=== PATIENT | female | born 1995 | race Caucasian/White ===

== ENCOUNTER 2024-05-09 13:25 | Emergency (ER) | payer MEDICAID, OTHER ==
[2024-05-09] MEDS ORDERED: Sodium Chloride 0.9% 10 ML Syringe FLUSH PRN (14:11)
[2024-05-09] MEDS ORDERED: Thiamine 100 MG in Sodium Chloride 0.9% 100 ML IV ONE (14:33)
[2024-05-09 14:39] LABS: BASOPHILS PERCENT AUTO 0.2 % (0.0-1.0); HEMATOCRIT 41.3 % (37.0-47.0); HEMOGLOBIN 14.1 gm/dl (12.0-16.0); IMMATURE GRAN ABSOLUTE AUTO 0.03 K/mm3 (0.00-0.05); IMMATURE GRAN PERCENT AUTO 0.3 % (0.0-0.4); LYMPHOCYTES ABSOLUTE AUTO 0.5 K/mm3 (1.0-4.8); LYMPHOCYTES PERCENT AUTO 5.7 % (24.0-44.0); MEAN CORPUSCULAR HEMOGLOBIN 29.3 pg (28.0-32.0); MEAN CORPUSCULAR HGB CONC 34.1 g/dl (32.0-36.0); MEAN CORPUSCULAR VOLUME 85.7 fl (83.0-99.0); MEAN PLATELET VOLUME 9.8 fl (9.4-12.3); MONOCYTES ABSOLUTE AUTO 0.2 K/mm3 (0.0-0.8); MONOCYTES PERCENT AUTO 2.2 % (0.0-8.0); NEUTROPHILS ABSOLUTE AUTO 8.1 K/mm3 (1.8-7.7); NEUTROPHILS PERCENT AUTO 91.6 % (41.0-71.0); PLATELET COUNT,PLT 212 K/mm3 (150-400); RED BLOOD CELL COUNT 4.82 M/mm3 (4.10-5.30)
[2024-05-09] MEDS: Ondansetron 4 MG/2 ML SDV IVPUSH ONE (14:40)
[2024-05-09] MEDS: Thiamine 200 MG/2 ML MDV IVPUSH ONE (14:40)
[2024-05-09] MEDS: Sodium Chloride 0.9% 1,000 ML IV ONE (14:40)
[2024-05-09] MEDS: Vitamin B6-pyridOXINE 50 MG Tab PO ONE (14:40)
[2024-05-09 14:52] LABS: ANION GAP 13.3 (5-15); BUN/CREATININE RATIO 13.3 (14-18); CALCIUM 8.9 mg/dL (8.5-10.1); CREATININE 0.9 mg/dL (0.55-1.02); EST CRCL DRUG DOSING (CG) 81.8 mL/min; POTASSIUM,K 3.3 mEq/L (3.5-5.1)
[2024-05-09 15:50] LABS: APPEARANCE,URINE CLEAR (Clear); BILIRUBIN,URINE NEGATIVE (Negative); COLOR,URINE YELLOW (Yellow); GLUCOSE,URINE NEGATIVE (Negative); KETONES,URINE 4+ (Negative); LEUKOCYTE ESTERASE,URINE NEGATIVE (Negative); NITRITE,URINE NEGATIVE (Negative); OCCULT BLOOD,URINE NEGATIVE (Negative); PH,URINE 7.5 (5.0-8.0); PROTEIN,URINE 1+ (Negative)
[2024-05-09 16:02] LABS: BACTERIA,URINE FEW /hpf (FEW); MUCUS,URINE FEW /hpf (FEW); RBC,URINE 0-5 /hpf (0-5); WBC,URINE 0-5 /hpf (0-5)
[2024-05-09 19:08] VITALS: BP 116/83; PULSE 84
== END 2024-05-09 18:30 | disposition home or self-care (01) ==
LOC: JD.ED 13:25
DX: O20.8 Other hemorrhage in early pregnancy (principal); O21.9 Vomiting of pregnancy, unspecified; O99.891 Other specified diseases and conditions complicating pregnancy; R19.7 Diarrhea, unspecified; Z3A.09 9 weeks gestation of pregnancy; Z90.49 Acquired absence of other specified parts of digestive tract; Z79.899 Other long term (current) drug therapy; Z88.2 Allergy status to sulfonamides
CPT/HCPCS: 36415; 76815; 80048; 81001; 84702; 84703; 85025; 96361; 96374; 96375; 99284; A9270; J2405; J3411; J7030

== ENCOUNTER 2024-07-03 12:24 | Emergency (ER) | payer OTHER ==
[2024-07-03 13:25] LABS: BASOPHILS PERCENT AUTO 0.4 % (0.0-1.0); HEMATOCRIT 36.7 % (37.0-47.0); HEMOGLOBIN 12.7 gm/dl (12.0-16.0); IMMATURE GRAN ABSOLUTE AUTO 0.02 K/mm3 (0.00-0.05); IMMATURE GRAN PERCENT AUTO 0.4 % (0.0-0.4); LYMPHOCYTES ABSOLUTE AUTO 0.4 K/mm3 (1.0-4.8); LYMPHOCYTES PERCENT AUTO 8.7 % (24.0-44.0); MEAN CORPUSCULAR HEMOGLOBIN 29.9 pg (28.0-32.0); MEAN CORPUSCULAR HGB CONC 34.6 g/dl (32.0-36.0); MEAN CORPUSCULAR VOLUME 86.4 fl (83.0-99.0); MONOCYTES ABSOLUTE AUTO 0.2 K/mm3 (0.0-0.8); MONOCYTES PERCENT AUTO 4.8 % (0.0-8.0); NEUTROPHILS PERCENT AUTO 85.7 % (41.0-71.0); PLATELET COUNT,PLT 177 K/mm3 (150-400); RED BLOOD CELL COUNT 4.25 M/mm3 (4.10-5.30); WHITE BLOOD CELL COUNT,WBC 4.61 K/mm3 (3.9-11.3)
[2024-07-03 14:07] LABS: A/G RATIO 0.7 (1-2); ALBUMIN 2.8 g/dl (3.4-5.0); ANION GAP 16.2 (5-15); BILIRUBIN TOTAL 0.2 mg/dL (0.2-1.0); BUN/CREATININE RATIO 5.7 (14-18); CALCIUM 8.5 mg/dL (8.5-10.1); CREATININE 0.7 mg/dL (0.55-1.02); EST CRCL DRUG DOSING (CG) 105.17 mL/min; POTASSIUM,K 3.2 mEq/L (3.5-5.1); PROTEIN TOTAL,TP 6.9 g/dl (6.4-8.2)
[2024-07-03] MEDS: Ondansetron 4 MG/2 ML SDV IVPUSH ONE (14:25)
[2024-07-03] MEDS: Acetaminophen 325 MG Tab PO ONE (14:25)
[2024-07-03] MEDS: Sodium Chloride 0.9% 1,000 ML IV SCH (14:25)
[2024-07-03 20:30] VITALS: BP 100/64; PULSE 98
== END 2024-07-03 15:30 | disposition home or self-care (01) ==
LOC: JD.ED 12:24
DX: O99.512 Diseases of the respiratory system complicating pregnancy, second trimester (principal); J10.1 Influenza due to other identified influenza virus with other respiratory manifestations; O99.282 Endocrine, nutritional and metabolic diseases complicating pregnancy, second trimester; E87.6 Hypokalemia; Z90.49 Acquired absence of other specified parts of digestive tract; Z88.8 Allergy status to other drugs, medicaments and biological substances; Z79.899 Other long term (current) drug therapy; Z3A.17 17 weeks gestation of pregnancy
CPT/HCPCS: 36415; 80053; 85025; 87428; 87651; 96361; 96374; 99284; A9270; J2405; J7030

== ENCOUNTER 2024-12-01 22:24 | Inpatient (IN) | payer OTHER ==
[~2024-12-01 22:24] MED LIST: Lidocaine 1.5% with EPINEPHrine 1:200,000 5 ML Amp ONE
[2024-12-01] MEDS ORDERED: Nalbuphine 10 MG/1 ML Vial IVPUSH PRN (22:54)
[2024-12-01] MEDS ORDERED: Lidocaine 1% 50 ML MDV INJECT PRN (22:54)
[2024-12-01] MEDS ORDERED: Sodium Chloride 0.9% 10 ML Syringe FLUSH PRN (22:54)
[2024-12-01 23:05] LABS: BASOPHILS PERCENT AUTO 0.2 % (0.0-1.0); EOSINOPHILS PERCENT AUTO 0.2 % (0.0-6.0); HEMATOCRIT 35.2 % (37.0-47.0); HEMOGLOBIN 11.7 gm/dl (12.0-16.0); IMMATURE GRAN ABSOLUTE AUTO 0.06 K/mm3 (0.00-0.05); IMMATURE GRAN PERCENT AUTO 0.6 % (0.0-0.4); LYMPHOCYTES ABSOLUTE AUTO 1.5 K/mm3 (1.0-4.8); LYMPHOCYTES PERCENT AUTO 14.5 % (24.0-44.0); MEAN CORPUSCULAR HEMOGLOBIN 28.6 pg (28.0-32.0); MEAN CORPUSCULAR HGB CONC 33.2 g/dl (32.0-36.0); MEAN CORPUSCULAR VOLUME 86.1 fl (83.0-99.0); MEAN PLATELET VOLUME 10.9 fl (9.4-12.3); MONOCYTES ABSOLUTE AUTO 0.6 K/mm3 (0.0-0.8); MONOCYTES PERCENT AUTO 5.7 % (0.0-8.0); NEUTROPHILS PERCENT AUTO 78.8 % (41.0-71.0); PLATELET COUNT,PLT 205 K/mm3 (150-400); RED BLOOD CELL COUNT 4.09 M/mm3 (4.10-5.30); WHITE BLOOD CELL COUNT,WBC 10.15 K/mm3 (3.9-11.3)
[2024-12-01] MEDS: Lactated Ringers 1,000 ML IV SCH (23:39)
[2024-12-01] MEDS ORDERED: diphenhydrAMINE 50 MG/ML SDV IVPUSH PRN (23:51)
[2024-12-01] MEDS ORDERED: ePHEDrine 50 MG/ML SDV IVPUSH PRN (23:51)
[2024-12-01] MEDS: Ondansetron 4 MG/2 ML SDV IVPUSH PRN (23:59)
[2024-12-02] MEDS: Bupivacaine/fentaNYL/NS 100 ML Bag EPIDUR PRN (00:01)
[2024-12-02] MEDS: Oxytocin/0.9 % Sodium Chloride 30 UNIT/500 ML BAG IV SCH (02:51)
[2024-12-02] MEDS ORDERED: Hydrocortisone Acetate 25 MG Supp RECTAL PRN (05:28)
[2024-12-02] MEDS ORDERED: Oxytocin/0.9 % Sodium Chloride 30 UNIT/500 ML BAG IV SCH (05:28)
[2024-12-02] MEDS ORDERED: Simethicone 80 MG Tab.Chew PO PRN (05:28)
[2024-12-02] MEDS: Witch Hazel Medicated Pads 40/Jar TOP PRN (05:43)
[2024-12-02] MEDS: Benzocaine/Menthol 20%-0.5% Spray 78 GM Cannister TOP PRN (05:43)
[2024-12-02] MEDS: Ibuprofen 600 MG Tab PO SCH ×2 (09:10→23:06)
[2024-12-02] MEDS: Prenatal Multivitamin with Calcium/Folic Acid/Iron Tab PO SCH (09:10)
[2024-12-02] MEDS: Acetaminophen 325 MG Tab PO PRN (20:23)
[2024-12-02] MEDS: Docusate Sodium 100 MG Cap PO PRN (20:24)
[2024-12-03 08:05] VITALS: BP 135/70; PULSE 68
== END 2024-12-03 10:12 | disposition home or self-care (01) | DRG 807 ==
LOC: JD.OBCHECK 22:24 → JD.OB 22:31 → JD.OBCHECK 22:32 → OBSVTOIN 12-02 03:03 → JD.OB 12-02 03:04
PROVIDERS: ADMIT Obstetrics & Gynecology; ATTEND Obstetrics & Gynecology
PROC: 10E0XZZ Delivery of Products of Conception, External Approach (ICD-10-PCS; principal; 2024-12-02)
PROC: 10907ZC Drainage of Amniotic Fluid, Therapeutic from Products of Conception, Via Natural or Artificial Opening (ICD-10-PCS; 2024-12-02)
PROC: 3E0R3BZ Introduction of Anesthetic Agent into Spinal Canal, Percutaneous Approach (ICD-10-PCS; 2024-12-02)
PROC: 00HU33Z Insertion of Infusion Device into Spinal Canal, Percutaneous Approach (ICD-10-PCS; 2024-12-02)
DX: O13.4 Gestational [pregnancy-induced] hypertension without significant proteinuria, complicating childbirth (principal); Z37.0 Single live birth; Z3A.39 39 weeks gestation of pregnancy
CPT/HCPCS: 01967; 36415; 51701; 59025; 59409; 85025; 86592; A9270-GY; J2405; J3490; J7120; J7999